=== PATIENT | male | born 1965 | race Caucasian/White ===

== ENCOUNTER 2017-01-08 20:56 | Emergency (ER) | payer OTHER ==
[~2017-01-08] VITALS: Ht 188 cm; Wt 89.7 kg
[2017-01-08 21:15] VITALS: TEMP 36.8; Ht 188 cm; Wt 89.7 kg
[2017-01-08] MEDS ORDERED: GELATIN SPONGE 12-7MM EXT STA (22:24)
--- NOTE | 2017-01-08 23:27 | EMERGENCY ROOM VISIT NOTE ---
ED Visit Note First contact with patient: 22:11 Chief Complaint: "Cut finger right middle". History of Present Illness: This patient is a 51-year-old male who presents to the Emergency Department via private vehicle for evaluation of their right third digit laceration. Patient sustained the laceration while slicing onions with a mandolin. They report a moderate amount of bleeding initially. They deny any numbness or tingling into the distal extremity. They report no decreased range of motion of the affected digit. They have tried nothing for the pain. Patient rates his current discomfort as a 6/10. Patient's Tetanus status is not currently up-to-date. Medications: None reported Allergies: No known allergies PMH: No pertinent past medical history. SHx: Patient is currently employed, and lives at home. ROS: All pertinent positive and negative review of systems are appropriately documented in the History of Present Illness. Physical Exam: VITAL SIGNS - Vital signs and nursing notes were reviewed. GENERAL -51-year-old male appearing his stated age who is in no acute distress. Communicates well with provider and answers questions appropriately. SKIN - There is a 11 cm skin avulsion noted at the distal aspect of the right third digit. There are no edges to suture. The avulsed piece of skin is nonexistent. No foreign bodies appreciated. Upon further examination there are no deep structures including tendon, or bony structures appreciated. There is no active bleeding noted. MUSCULOSKELETAL - skin avulsion as described above. +5/5 strength appreciated of the affected digit. Full range of motion of the affected digit. NEUROLOGIC - patient neurologically intact within the digit. VASCULAR - Capillary refill was brisk. ED Course: Patient was seen and evaluated by myself. Risks and benefits of performing primary wound closure versus no repair were discussed with the patient who verbalizes understanding. Verbal consent was obtained prior to performing the procedure. The wound was cleansed and prepped in the typical sterile fashion utilizing normal saline and Betadine. The wound was copiously irrigated with normal saline and Betadine. There was minimal active bleeding, therefore a finger tourniquet was applied. Hemostasis was achieved Gelfoam. The finger was then wrapped with rolled gauze, followed by Coban. Patient tolerated the procedure well. No complications were met. Patient declined an Adacel/tetanus injection. He was informed to follow-up to receive 1. Patient educated on worrisome symptoms for return visit to the Emergency Department. Patient discharged to home in good condition. In evaluation treatment this patient following differential diagnoses were entertained: Finger laceration, skin avulsion, bone fragmentation, among others. Problem List Medical Problems: (1) Alcohol abuse Status: Chronic (2) Alcohol intoxication Status: Resolved (3) Current drinker of alcohol Status: Chronic Current/Historical Medications No Active Prescriptions or Reported Meds Allergies Coded Allergies: No Known Allergies (Unverified , 01/08/17) Vital Signs Date Time Temp Pulse Resp B/P Pulse Ox O2 Delivery O2 Flow Rate FiO2 01/08/17 21:15 36.8 60 18 131/81 96 Room Air Departure Information Impression Primary Impression: Avulsion of skin of finger Dispostion Home / Self-Care Condition GOOD Prescriptions No Active Prescriptions or Reported Meds Referrals No Doctor, Assigned (PCP) Patient Instructions My [facility] Additional Instructions You have been treated in the Emergency Department today for your right finger tip skin Avulsion. Leave the GELFOAM and dressing in place for the next 48 hours. Keep the dressing clean and dry until time for removal. To remove the GELFOAM dressing, remove the overlying tape and then soak the wound in warm water until the piece of GELFOAM can be easily removed. Proper wound care is essential for adequate wound healing and infection prevention. You can shower and clean the wound with soap and water. Do not scour over the wound, pat dry with a towel. You can use an antibiotic ointment with a dressing/bandage over the wound for the next 3-4 days (after removing the gelfoam). After this time you may leave the wound dry and open to the air. Look for signs of infection of the wound including: increased pain, swelling, foul discharge, streaking, or increased temperature. If any of these are noticed you should return to the Emergency Department for further assessment and treatment. As with any laceration you may have received nerve damage to the surrounding tissues. This damage could be permanent. For pain control, you can use the following [id number] medicines (if >12 yo): - Regular strength (325mg/tab) Tylenol (acetaminophen) 2 tabs every 4-6 hours as needed. Do not exceed 12 tablets in a 24 hour period. Avoid taking more than 4 grams (4000 mg) of Tylenol per day. This includes any other sources of acetaminophen you may take on a regular basis. - Regular strength (200 mg/tab) Advil (ibuprofen) 1-2 tabs every 4-6 hours as needed. Do not exceed a dose of 3200 mg per day. Return to the emergency department if your symptoms worsen despite treatment course outlined above. Please return to the emergency department with any new/concerning symptoms. It is recommended that you get a tetanus shot in the near future.
[2017-01-08 23:35] VITALS: BP 124/79; PULSE 63; O2SAT 98
== END 2017-01-08 23:34 | disposition home or self-care (01) ==
LOC: C.EDB 20:58 → C.EDD 23:34
DX: S61.210A Laceration without foreign body of right index finger without damage to nail, initial encounter (principal); W45.8XXA Other foreign body or object entering through skin, initial encounter